=== PATIENT | female | born 1985 | race Caucasian/White ===

== ENCOUNTER 2018-01-03 23:33 | Emergency (ER) | payer BC ==
[2018-01-03] MEDS ORDERED: Sodium Chloride 0.9% 1,000 ML IV ONE (23:54)
[2018-01-03] MEDS ORDERED: Benztropine 1 MG Tab PO STA (23:54)
[2018-01-03] MEDS ORDERED: Ondansetron 4 MG/2 ML SDV IVPUSH ONE (23:54)
[2018-01-03] MEDS ORDERED: Haloperidol Lactate 5 MG/ML SDV IM ONE (23:54)
--- NOTE | 2018-01-03 23:58 | EDM.PDOC ---
ED HPI GENERAL MEDICAL PROBLEM - General Chief Complaint: Neurological Problem Stated Complaint: POSS SEIZURE Time Seen by Provider: 01/03/18 23:42 Source of Information: Reports: Patient, Family ( + sister) History Limitations: Reports: No Limitations - History of Present Illness INITIAL COMMENTS - FREE TEXT/NARRATIVE: The patient states that she developed a headache yesterday. It is sharp and stabbing in character, and felt in the left frontal area. She states that she developed left facial weakness, nausea, and some memory loss while at [facility]. While she did not volunteer it, when asked, she states that she has blurry vision and has had flashes of light. She states that she has had photophobia and phonophobia. She denies tingling or numbness. The patient states that she has had similar symptoms many times, due to migraine headaches that she has had since 15 years old. The patient states that she was prescribed gabapentin about 2 weeks ago, for migraine prophylaxis. The patient states that she may have had some seizure-like activity, and was seen at the [place] [facility] this past 12/30/2017. She states that a CT scan of the head was negative. No new prescriptions were given. The patient's PCP is Diamante Tanner, from [place]. Her Neurologist is Dr. Silver, from [place]. Headache Pain Score (Numeric/FACES): 10 - Related Data Allergies Allergy/AdvReac Type Severity Reaction Status Date / Time ethinyl estradiol Allergy Headache Verified 01/03/18 23:43 [From [place]] ketorolac [From Toradol] Allergy Anaphylactic Verified 01/03/18 23:43 Shock levonorgestrel [From [place]] Allergy Headache Verified 01/03/18 23:43 morphine Allergy Nausea and Verified 01/03/18 23:43 Vomiting Past Medical History Neurological History: Reports: Migraines Endocrine/Metabolic History: Reports: Obesity/BMI 30+ - Past Surgical History HEENT Surgical History: Reports: Oral Surgery ([place] teeth extraction), Tonsillectomy GI Surgical History: Reports: Appendectomy, Cholecystectomy, Colleen Fundoplication Female Surgical History: Reports: Hysterectomy Musculoskeletal Surgical History: Reports: Arthroscopic Knee (left), Other (See Below) (Left leg surgery) Social & Family History - Family History Family Medical History: Noncontributory - Tobacco Use Smoking Status *Q: Never Smoker - Alcohol Use Alcohol Use History: Yes Alcohol Use Frequency: Socially - Recreational Drug Use Recreational Drug Use: No - Living Situation & Occupation Living situation: Reports: , with Spouse, with Family (4 kids) Occupation: Employed ([employer]) ED ROS GENERAL - Review of Systems Review Of Systems: ROS reveals no pertinent complaints other than HPI. - Physical Exam Exam: See Below Exam Limited By: No Limitations General Appearance: Alert, WD/WN, Mild Distress (Appears uncomfortable) Eye Exam: Bilateral Eye: EOMI, Normal Inspection, PERRL Ears: Normal External Exam, Hearing Grossly Normal, Normal TMs Nose: Normal Inspection, No Blood Throat/Mouth: Normal Inspection, Normal Lips, Normal Voice, No Airway Compromise Head Exam: Atraumatic, Normocephalic Neck: Normal Inspection, Full Range of Motion Respiratory/Chest: No Respiratory Distress, Lungs Clear, Normal Breath Sounds, No Accessory Muscle Use Cardiovascular: Normal Peripheral Pulses, Regular Rate, Rhythm, No Gallop, No JVD, No Murmur, No Rub GI/Abdominal: Normal Bowel Sounds, Soft, Non-Tender, No Organomegaly, No Distention, No Abnormal Bruit, No Mass, Other (Obese) (Female) Exam: Deferred Rectal (Female) Exam: Deferred Neuro Exam (Abbreviated): Alert, Oriented, CN II-XII Intact, Normal Cognition, No Motor/Sensory Deficits Extremities: Normal Inspection, Normal Range of Motion, Normal Capillary Refill Psychiatric: Normal Affect Skin Exam: Warm, Dry, Intact, Normal Color, No Rash Course - Vital Signs Last Recorded V/S: Last Vital Signs Temp 36.6 C 01/03/18 23:36 Pulse 102 H 01/03/18 23:36 Resp 16 01/03/18 23:36 BP 133/94 H 01/03/18 23:36 Pulse Ox 96 01/03/18 23:36 - Orders/Labs/Meds Meds: Medications Discontinued Medications Generic Name Dose Route Start Last Admin Trade Name Freq PRN Reason Stop Dose Admin Benztropine Mesylate 1 mg 01/03/18 23:54 01/04/18 00:22 Cogentin PO 01/03/18 23:55 1 mg ONETIME STA Administration Haloperidol Lactate 5 mg 01/03/18 23:54 01/04/18 00:14 Haldol IM 01/03/18 23:55 5 mg ONETIME ONE Administration Sodium Chloride 1,000 mls @ 999 mls/hr 01/03/18 23:54 01/04/18 00:14 Normal Saline IV 01/04/18 00:54 999 mls/hr ONETIME ONE Administration Ondansetron HCl 4 mg 01/03/18 23:54 01/04/18 00:14 Zofran IVPUSH 01/03/18 23:55 4 mg ONETIME ONE Administration - Re-Assessments/Exams Free Text/Narrative Re-Assessment/Exam: 01/03/18 23:56 The patient appears to be suffering from a migraine headache, same as many previous. The patient tells me that a CT scan of her head was negative this past 12/30/2017, and her neurologic exam is normal tonight, therefore a repeat CT scan is not indicated. I have ordered Cogentin, Haldol, IV fluid, and Zofran. 01/03/18 23:59 Notified by the patient's nurse that she contacted [place] [facility] in order to get a copy of the CT/head report from 12/30/2017. She was informed that the ED staff there is very familiar with the patient, that she is a "frequent flyer", and that she likes Dilaudid. They reported that the patient gives epinephrine to herself to cause headaches, to try to get narcotics. They will fax the CT report. When I was examining the patient, I asked about both migraine prophylactic and migraine abortive medications. At this time, the patient is only on gabapentin, prescribed just 2 weeks ago, and does not take any abortive medications. When I asked her what she usually receives when she goes to the ED, she replied Dilaudid and Zofran. I informed her at the time that this facility does not treat headaches with opioids, the only exception being for intracranial hemorrhages. I explained that we will treat with a neuroleptic, which virtually always works to abort a migraine. The patient agreed. 01/04/18 02:14 [facility] sent to CT/head reports, one from 12/22/2017, another from 12/30/2017. The one from 12/22/2017 reads "No acute intracranial event is apparent. I detect no significant interval change." The one from 12/30/2017 reads "No acute intracranial findings identified. There is mild loss of detail given patient motion." The patient reports substantial improvement in her headache following IM Haldol. She states that she has been prescribed Maxalt in the past, and that it did not work. I will discharge her home. Departure - Departure Time of Disposition: 02:15 Disposition: Home, Self-Care 01 Condition: Good Clinical Impression: Migraine headache - Discharge Information *PRESCRIPTION DRUG MONITORING PROGRAM REVIEWED*: Not Applicable *COPY OF PRESCRIPTION DRUG MONITORING REPORT IN PATIENT POWER: Not Applicable Instructions: Migraine Headache, [id number] Referrals: PCP,Not In Area [Primary Care Provider] - Selma Silver MD [Ordering Only Provider] - Forms: ED Department Discharge Additional Instructions: You were seen in the emergency room for a migraine headache. Your headache substantially improved following IM Haldol. Get plenty of rest tonight in a dark, quiet place. Stay well hydrated. Follow-up with your Neurologist, Dr. Silver, as needed. If any other problems, please do not hesitate to return to the ER.
== END 2018-01-04 02:24 | disposition home or self-care (01) ==
LOC: JD.ED 23:33
DX: G43.909 Migraine, unspecified, not intractable, without status migrainosus (principal); E66.9 Obesity, unspecified; Z88.5 Allergy status to narcotic agent
CPT/HCPCS: 96361; 96372; 96374; 99285; A9270; J1630; J2405; J7040